=== PATIENT | female | born 1985 | race African-American/Black ===

== ENCOUNTER 2020-01-31 18:30 | Inpatient (IN) | payer OTHER ==
[2020-02-01 02:13] VITALS: BMI 37.1
[2020-02-01 03:13] LABS: BASO % 0.1 % (0-2.0); EOS % 0.2 % (0-4.5); HEMATOCRIT 38.8 % (32.4-45.2); LYMPH % 15.4 % (8-40); MCH 31.2 pg (25.7-33.7); MCHC 33.4 g/dl (32.0-36.0); MEAN CELL VOLUME 93.4 fl (80-96); MEAN PLT VOLUME 12.3 fl (7.5-11.1); MONO % 5.5 % (3.8-10.2); NEUT % 78.8 % (42.8-82.8); RBC 4.16 M/mm3 (3.60-5.2); RDW 14.1 % (11.6-15.6); WHITE BLOOD COUNT 9.5 K/mm3 (4.0-10.0)
[2020-02-01 03:14] LABS: INR 0.92 (0.83-1.09); PROTHROMBIN TIME (PATIENT) 10.8 SEC (9.7-13.0)
[2020-02-01 03:17] LABS: ACTIVATED PTT 31.2 SECONDS (25.2-36.5)
[2020-02-01 03:21] LABS: CALCIUM 9.2 mg/dL (8.5-10.1); CREATININE 0.6 mg/dL (0.55-1.3); POTASSIUM 3.9 mmol/L (3.5-5.1)
[2020-02-01] MEDS ORDERED: LIDOCAINE HCL 1% PRESERVATIVE FREE - 30ML VIAL ONE (03:30)
[2020-02-01] MEDS ORDERED: OXYTOCIN 20 UNITS in 0.9% NS 20 UNIT/1,000 ML INFUS.BAG IV ONE (03:30)
[2020-02-01] MEDS ORDERED: FENTANYL/BUPIVACAINE/NS/PF - PCEA - 50 ML DISP.SYRIN EP ONE (03:30)
[2020-02-01] MEDS ORDERED: PCA PUMP NR ONE (03:30)
[2020-02-01] MEDS ORDERED: NALOXONE HCL 0.4 MG/ML VIAL IVPUSH PRN (03:43)
[2020-02-01] MEDS ORDERED: BUPIVACAINE HCL/PF 0.25% (2.5MG/ML) 10 ML VIAL ONE (03:45)
[2020-02-01] MEDS ORDERED: FENTANYL/BUPIVACAINE/NS/PF - PCEA - 50 ML DISP.SYRIN EP SCH (03:45)
[2020-02-01 03:59] LABS: PLATELET COUNT 113 K/MM3 (134-434); PLATELET ESTIMATE ADEQUATE
--- NOTE | 2020-02-01 05:48 | HP ---
Past Medical History - Admission History of Present Illness: 34 yo @ 40 5/7 wks, EDC 01/27/2020 by first trimester ultrasound, complicated by: 1. Maternal Obesity - Starting weight 193 (BMI 31) 37 lb wt gain this Last ultrasound 01/17/2020, 2852g, 6 lb 5 oz (15%) early GCT 71 2. Sjogren's Syndrone - Anti-SS-B positive Reassuring doppler Q 2 wk 3. 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 Varicella Non-immune Patient reports with chief complaint of contractions, which began yesterday and increased in intensity and frequency. She was found to be 1 cm and progressed to 4 cm. She reports movement, denies leakage of fluid or vaginal bleeding. Limitations to Obtaining History: No Limitations - Past Medical History ...: 1 ...Para: 0 ...Term: 0 ...EDC by [facility]: 01/27/20 Rheumatology: Yes: Other (Sjogren's Syndrome Anti-SSB Positive, ISAI positive) Endocrine: Yes: Other (2mm prolactinoma, as above) - Past Surgical History Hx Myomectomy: No Hx Transabdominal Cerclage: No Additional Surgical History: Impacted wisdom tooth extraction - Smoking History Smoking history: Never smoked Have you smoked in the past 12 months: No - Alcohol/Substance Use Hx Alcohol Use: No History of Substance Use: reports: None - Social History ADL: Independent History of Recent Travel: No Home Medications - Allergies Allergies/Adverse Reactions: Allergies Allergy/AdvReac Type Severity Reaction Status Date / Time No Known Allergies Allergy Verified 02/01/20 01:44 Family Medical History Family History: Denies Review of Systems - Review of Systems Constitutional: reports: No Symptoms Cardiovascular: reports: No Symptoms Respiratory: reports: No Symptoms Gastrointestinal: reports: No Symptoms Genitourinary: reports: No Symptoms Neurological: reports: No Symptoms Endocrine: reports: No Symptoms Psychiatric: reports: No Symptoms Physical Exam - Maternity Vital Signs: Vital Signs Temperature 98.7 F 02/01/20 05:00 Pulse Rate 103 H 02/01/20 03:30 Respiratory Rate 20 02/01/20 03:30 Blood Pressure 155/77 02/01/20 03:30 O2 Sat by Pulse Oximetry (%) Constitutional: Yes: Well Nourished, No Distress, Calm Cardiovascular: Yes: Regular Rate and Rhythm Lungs: Clear to auscultation - Abdominal Exam/OB Number of Fetuses: Single Contractions: Yes Regularity: Regular Intensity: Mod/Strong Category: I - Vaginal Exam/OB Dilatation (cm): 4 Amniotic Membrane Status: Intact - Physical Exam Psychiatric: Yes: Alert, Oriented - Labs Lab Results: CBC, BMP 02/01/20 02:20 02/01/20 02:20 PNL: O positive, antibody negative, RPR HR, HIV neg, HBs Ag neg; HCV neg; Varicella non-immune; Rubella Immune; Hg Irena AA; early GCT WNL; 28 wk WNL; GBS neg Hemorrhage Risk Assessment - Risk Factors Medium Risk Factors: Yes: None High Risk Factors: Yes: None Risk Score: 1 Risk Level: Medium Risk Assessment/Plan 34 yo @ 40+ wks, active labor 1. Admit to L&D, routine labs collected and sent 2. Consents reviewed and signed 3. GBS negative 4. Desires epidural for pain control 5. Will proceed with expectant management
[2020-02-01] MEDS ORDERED: BENZOCAINE 20% 57 GM BOTTLE TP PRN (07:33)
[2020-02-01] MEDS ORDERED: METHYLERGONOVINE MALEATE 0.2 MG/1 ML AMP IM PRN (07:33)
[2020-02-01] MEDS ORDERED: BISACODYL 10 MG SUPP.RECT RC PRN (07:33)
[2020-02-01] MEDS ORDERED: BENZOCAINE 28 GM HEMORRHOIDAL OINTMENT TP PRN (07:33)
[2020-02-01] MEDS ORDERED: WITCH HAZEL 50% (TUCKS) 40 PAD/JAR PAD TP PRN (07:33)
[2020-02-01] MEDS ORDERED: IBUPROFEN 600 MG TABLET (FP) PO PRN (07:33)
[2020-02-01] MEDS ORDERED: ACETAMINOPHEN 325 MG TABLET (FP) PO PRN (07:33)
--- NOTE | 2020-02-01 07:35 | PN ---
Delivery - Delivery Vaginal Delivery: No Problems Type of Anesthesia: Epidural Episiotomy/Laceration: None, 2nd degree EBL (cc): 300 Delivery, Single - Stages of Labor Date 1st Stage Initiatied: 01/31/20 Time 1st Stage Initiated: 23:00 Date 2nd Stage Initiated: 02/01/20 Time 2nd Stage Initiated: 05:15 Date of Delivery: 02/01/20 Time of Delivery: 06:32 Time Placenta Delivered: 06:51 Placenta: Yes: Spontaneous - Condition of Gender: Female Position: Right, OA Total Hours ROM (Hrs/Mins): 1H26M - 1 Minute Total Score: 9 5 Minutes Total Score: 9 - Feeding Plan Initial Plan: Elected not to breastfeed exclusively throughout hospitalization Remarks - Remarks Remarks: Patient progressed to fully dilated and at 0632 via delivered a viable female infant in ADITYA position, APGARs 9,9. Weight and length unknown at this time. Head delivered spontaneously followed by shoulders and body without difficulty. Infant with spontaneous cry and placed on mother's abdomen. Nose and mouth was bulb suctioned. Cord was clamped and cut. Perineum and vagina examined, a second degree laceration was noted and repaired in the usual fashion. Placenta was delivered spontaneously and intact. 20 units of pitocin in 1 L IVF was given. All counts correct x 2. Mother and stable in LDR. EBL 300cc.
[2020-02-01] MEDS ORDERED: OXYTOCIN 20 UNITS in 0.9% NS 20 UNIT/1,000 ML INFUS.BAG IV SCH (07:45)
[2020-02-02 09:41] LABS: BASO % 0.4 % (0-2.0); EOS % 0.5 % (0-4.5); HEMATOCRIT 30.1 % (32.4-45.2); HEMOGLOBIN 10.1 GM/dL (10.7-15.3); LYMPH % 22.2 % (8-40); MCH 31.5 pg (25.7-33.7); MCHC 33.5 g/dl (32.0-36.0); MEAN CELL VOLUME 93.8 fl (80-96); MEAN PLT VOLUME 12.3 fl (7.5-11.1); MONO % 7.8 % (3.8-10.2); NEUT % 69.1 % (42.8-82.8); PLATELET COUNT 127 K/MM3 (134-434); RBC 3.21 M/mm3 (3.60-5.2); RDW 14.2 % (11.6-15.6); WHITE BLOOD COUNT 8.5 K/mm3 (4.0-10.0)
[2020-02-02] MEDS ORDERED: ENOXAPARIN NA (PORCINE) 40 MG/0.4 ML DISP.SYRIN SQ SCH (10:00)
--- NOTE | 2020-02-02 13:06 | DS ---
Physical Exam-[facility] Vital Signs: Vital Signs Temperature 97.9 F 02/02/20 06:00 Pulse Rate 102 H 02/02/20 06:00 Respiratory Rate 18 02/02/20 06:00 Blood Pressure 126/70 02/02/20 06:00 O2 Sat by Pulse Oximetry (%) 97 02/02/20 06:00 Constitutional: Yes: No Distress, Calm, Obese Eyes: Yes: WNL, Conjunctiva Clear, EOM Intact HENT: Yes: WNL, Atraumatic, Normocephalic Neck: Yes: WNL, Supple, Trachea Midline Cardiovascular: Yes: WNL, Regular Rate and Rhythm Respiratory: Yes: WNL, Regular, CTA Bilaterally Gastrointestinal: Yes: WNL, Normal Bowel Sounds, Soft, Abdomen, Obese ...Rectal Exam: Yes: Deferred Renal/: Yes: WNL ....Post : Yes: Uterus firm, Uterus non-tender, Slight lochia rubra Breast(s): Yes: WNL Musculoskeletal: Yes: WNL Extremities: Yes: WNL Edema: Yes Edema: LLE: Trace, RLE: Trace Integumentary: Yes: WNL Neurological: Yes: WNL, Alert, Oriented ...Motor Strength: WNL Psychiatric: Yes: WNL, Alert, Oriented Labs: CBC, BMP 02/02/20 09:20 02/01/20 02:20 Delivery - Delivery Vaginal Delivery: No Problems Type of Anesthesia: Epidural Episiotomy/Laceration: None, 2nd degree EBL (cc): 300 Delivery, Single - Stages of Labor Date 1st Stage Initiatied: 01/31/20 Time 1st Stage Initiated: 23:00 Date 2nd Stage Initiated: 02/01/20 Time 2nd Stage Initiated: 05:15 Date of Delivery: 02/01/20 Time of Delivery: 06:32 Time Placenta Delivered: 06:51 Placenta: Yes: Spontaneous, Normal Configuration - Condition of Infant Infant Gender: Female Weight: 2.863 kg Position: Right, OA Total Hours ROM (Hrs/Mins): 1H26M - 1 Minute Total Score: 9 5 Minutes Total Score: 9 - [place] Feeding Plan Initial Plan: Elected not to breastfeed exclusively throughout hospitalization Benefits of Exclusively reinforced: Yes Discharge Summary Problems reviewed: Yes Reason For Visit: LABOR ADMIT Obesity Sjogren's Syndrome Prolactinoma Procedures: Principal: [facility] Hospital Course: Normal recovery Plan of Treatment: Normal recovery, breast feeding Goals: Normal recovery, breast feeding Condition: Good - Instructions Diet, Activity, Other Instructions: Follow-up in office in 4-5 weeks. Physical activity Resume your normal everyday activity as tolerated no heavy lifting or exercise until seen by your surgeon. You may walk unlimited jacquie of and climb stairs. You may resume driving the car when you feel safe and comfortable behind the wheel. No sexual activity as instructed. Wound care If you have a bandage, leave it on, and keep dry for 48-72 hours. After that time discard the outer bandage. If they are tapes on the skin under the out of bandage leave them in place. They will peel off in the next 7 to 10 days. Do Not Peel them off. You may shower the day after surgery. If there are tapes present on the skin, you may shower over them. Diet There are no dietary restrictions. Eat healthy, high-fiber foods. Drink 6 to 8 glasses of liquid each day. This will assist in keeping your bowels are regular. Pain management You may take Tylenol or acetaminophen or Ibuprofen (for example, Motrin, Advil etc.) from my pain prescription medication is ordered should be taken as prescribed for moderate to severe pain. Call MD for any of the following: Severe pain not relieved by medication Fever of 101 or higher Excessive bleeding or drainage on dressing Inability to urinate Referrals: Franco Amezcua MD [Staff Physician] - 1 Month Disposition: HOME
[2020-02-02 14:03] VITALS: BP 138/65; PULSE 113; TEMP 98.6
[2020-02-02] MEDS ORDERED: SENNOSIDES/DOCUSATE COMBO (SENNA PLUS) TABLET (UD) PO PRN (22:00)
== END 2020-02-02 19:42 | disposition home or self-care (01) | DRG 807 ==
LOC: JDEL 18:30 → JLDR 02-01 01:30 → J3W 02-01 14:40
PROVIDERS: ADMIT Obstetrics & Gynecology; ATTEND Obstetrics & Gynecology
PROC: 0KQM0ZZ Repair Perineum Muscle, Open Approach (ICD-10-PCS; principal; 2020-02-01)
PROC: 10E0XZZ Delivery of Products of Conception, External Approach (ICD-10-PCS; 2020-02-01)
DX: O48.0 Post-term pregnancy (principal); Z37.0 Single live birth; O75.89 Other specified complications of labor and delivery; M35.00 Sjogren syndrome, unspecified; O70.1 Second degree perineal laceration during delivery; D35.2 Benign neoplasm of pituitary gland; O99.214 Obesity complicating childbirth; Z3A.40 40 weeks gestation of pregnancy
CPT/HCPCS: 36415; 59025; 59409; 80048; 85025; 85610; 85730; 86762; 86780; 86803; 86850; 86900; 86901

== ENCOUNTER 2024-11-11 05:26 | Inpatient (IN) | payer OTHER ==
[2024-11-11 06:25] VITALS: BMI 40.3
[2024-11-11] MEDS: ELECTROLYTE-148 SOLN 500 ML IV ONE (06:45)
[2024-11-11] MEDS: CITRIC ACID/SODIUM CITRATE 30 ML UNIT-DOSE CUP PO ONE (06:51)
[2024-11-11 06:55] LABS: HEMOGLOBIN 12.2 g/dL (11.2-15.7); MEAN CELL VOLUME 94.1 fl (79.4-94.8)
[2024-11-11 06:57] LABS: HEMATOCRIT 36.5 % (34.1-44.9); MCHC 33.4 g/dl (32.2-35.5); MEAN PLT VOLUME 13.8 fl (9.4-12.3); PLATELET COUNT 95 x10^3/uL (182-369); RDW 13.9 % (12.1-16.8)
[2024-11-11 07:04] LABS: INR 0.94 (0.83-1.09); PROTHROMBIN TIME (PATIENT) 10.3 SEC (9.7-13.0)
[2024-11-11 07:07] LABS: ACTIVATED PTT 27.1 SECONDS (25.2-36.5)
[2024-11-11 07:15] LABS: BLOOD UREA NITROGEN 7.5 mg/dL (7-18); CALCIUM 9.1 mg/dL (8.5-10.1)
[2024-11-11 07:18] LABS: CREATININE 0.4 mg/dL (0.55-1.3)
[2024-11-11] MEDS: ELECTROLYTE-148 SOLN 1,000 ML IV SCH (08:05)
[2024-11-11] MEDS ORDERED: KETOROLAC TROMETHAMINE 30 MG/1 ML VIAL ONE (09:35)
[2024-11-11] MEDS ORDERED: morphine SULFATE/PF 1 MG/2 ML (2cc Syringe - QUVA) ONE (09:35)
[2024-11-11] MEDS ORDERED: ONDANSETRON 4 MG/2 ML VIAL ONE ×2 (09:35→16:13)
[2024-11-11] MEDS ORDERED: OXYTOCIN 10 UNITS/ML VIAL ONE (09:35)
[2024-11-11] MEDS ORDERED: FENTANYL CITRATE/PF 50 MCG/ML VIAL ONE (09:35)
[2024-11-11] MEDS ORDERED: ceFAZolin SODIUM 1 GM VIAL ONE (11:17)
[2024-11-11] MEDS ORDERED: BENZOCAINE 28 GM HEMORRHOIDAL OINTMENT TP PRN (13:11)
[2024-11-11] MEDS ORDERED: BENZOCAINE 20% 57 GM BOTTLE TP PRN (13:11)
[2024-11-11] MEDS ORDERED: WITCH HAZEL 50% (TUCKS) 40 PAD/JAR PAD TP PRN (13:11)
[2024-11-11] MEDS ORDERED: METHYLERGONOVINE MALEATE 0.2 MG/1 ML AMP IM PRN (13:11)
[2024-11-11 14:09] LABS: CORD HCO3 27.1 mmHg (20-29); CORD PCO2 63.2 mmHg (30-78); CORD PCO2 67.2 mmHg (30-78); CORD pH 7.224 (7.14-7.44); CORD pH 7.265 (7.14-7.44)
[2024-11-11 14:15] LABS: CORD PCO2 61.9 mmHg (30-78); CORD pH 7.258 (7.14-7.44)
[2024-11-11 14:16] LABS: CORD HCO3 25.6 mmHg (20-29); CORD PCO2 54.8 mmHg (30-78); CORD pH 7.288 (7.14-7.44)
[2024-11-11] MEDS: ONDANSETRON 4 MG/2 ML VIAL IVPUSH PRN (16:21)
[2024-11-11] MEDS: IBUPROFEN 800 MG/8 ML IJ IVPB PRN (17:37)
[2024-11-11 18:28] LABS: HIV INTERPRETATION NEGATIVE (NEGATIVE)
[2024-11-11] MEDS: SENNOSIDES/DOCUSATE COMBO (SENNA PLUS) TABLET (UD) PO PRN (22:35)
[2024-11-11] MEDS: SIMETHICONE 80 MG TAB.CHEW (FP) PO PRN (22:35)
[2024-11-11] MEDS: OXYTOCIN 20 UNITS in 0.9% NS 20 UNIT/1,000 ML INFUS.BAG IV SCH (22:36)
[2024-11-12 07:24] LABS: HEMATOCRIT 35.2 % (34.1-44.9); HEMOGLOBIN 11.4 g/dL (11.2-15.7); MCHC 32.4 g/dl (32.2-35.5); MEAN CELL VOLUME 94.9 fl (79.4-94.8); MEAN PLT VOLUME 13.4 fl (9.4-12.3); PLATELET COUNT 84 x10^3/uL (182-369); RDW 13.8 % (12.1-16.8)
[2024-11-12] MEDS: PRENATAL VITAMINS W/ FOLIC ACID TABLET (FP) PO SCH (10:04)
[2024-11-12] MEDS: ENOXAPARIN NA (PORCINE) 40 MG/0.4 ML DISP.SYRIN SQ SCH (10:04)
[2024-11-12] MEDS ORDERED: BISACODYL 10 MG SUPP.RECT RC PRN (13:11)
[2024-11-12] MEDS: IBUPROFEN 600 MG TABLET (FP) PO PRN (18:51)
[2024-11-12] MEDS: ACETAMINOPHEN 325 MG TABLET (FP) PO PRN (20:42)
[2024-11-12] MEDS: oxyCODONE HCL 5 MG TABLET PO PRN (23:25)
[2024-11-13 08:07] LABS: HEMATOCRIT 34.9 % (34.1-44.9); HEMOGLOBIN 11.1 g/dL (11.2-15.7); MCHC 31.8 g/dl (32.2-35.5)
[2024-11-13 08:08] LABS: MEAN CELL VOLUME 97.2 fl (79.4-94.8); MEAN PLT VOLUME 13.7 fl (9.4-12.3); PLATELET COUNT 103 x10^3/uL (182-369); RDW 14.3 % (12.1-16.8)
[2024-11-14 07:48] LABS: HEMATOCRIT 36.6 % (34.1-44.9); HEMOGLOBIN 11.8 g/dL (11.2-15.7); MCHC 32.2 g/dl (32.2-35.5); MEAN CELL VOLUME 95.3 fl (79.4-94.8); MEAN PLT VOLUME 12.9 fl (9.4-12.3); PLATELET COUNT 122 x10^3/uL (182-369); RDW 13.9 % (12.1-16.8)
[2024-11-14] MEDS: oxyCODONE HCL 5 MG TABLET PO PRN (17:46)
[2024-11-15 11:10] VITALS: BP 130/85; PULSE 87; RESP 18; TEMP 98
== END 2024-11-15 13:30 | disposition home or self-care (01) | DRG 787 ==
LOC: JLDR 05:26 → J3W 15:15
PROVIDERS: ADMIT Obstetrics & Gynecology; ATTEND Obstetrics & Gynecology
PROC: 10D00Z1 Extraction of Products of Conception, Low, Open Approach (ICD-10-PCS; principal; 2024-11-11)
DX: O30.043 Twin pregnancy, dichorionic/diamniotic, third trimester (principal); O99.12 Other diseases of the blood and blood-forming organs and certain disorders involving the immune mechanism complicating childbirth; O32.1XX0 Maternal care for breech presentation, not applicable or unspecified; M35.00 Sjogren syndrome, unspecified; D69.6 Thrombocytopenia, unspecified; Z3A.38 38 weeks gestation of pregnancy; Z37.2 Twins, both liveborn
CPT/HCPCS: 36415; 36600; 80048; 82803; 85025; 85027; 85610; 85730; 86780; 86850; 86900; 86901; 87389; 88307-TC